=== PATIENT | female | born 1985 | race Caucasian/White ===

== ENCOUNTER 2017-10-27 09:05 | Observation (INO) | payer OTHER ==
[~2017-10-27] VITALS: Ht 160 cm; Wt 83.0 kg
[~2017-10-27 09:05] MED LIST: DSS100 PO; FERR-72 PO; IBUP-2070 PO
[2017-10-27 09:42] VITALS: BP 123/63
[2017-10-27] MEDS ORDERED: PNV11TAB PO (10:52)
[2017-10-27] MEDS ORDERED: ASPI-556 PO (10:52)
[2017-10-27 11:08] LABS: HEMOGLOBIN A1C 5.7 % (4.5-6.2)
== END 2017-10-27 11:00 | disposition home or self-care (01) ==
LOC: 4S 09:05
PROVIDERS: ADMIT Obstetrics & Gynecology; ATTEND Obstetrics & Gynecology
DX: O62.9 Abnormality of forces of labor, unspecified (principal); Z3A.36 36 weeks gestation of pregnancy
CPT/HCPCS: 36415; 59025; 82947; 83036; G0378

== ENCOUNTER 2017-11-21 12:00 | Inpatient (IN) | payer OTHER ==
[~2017-11-21] VITALS: Ht 154.9 cm; Wt 84.8 kg
[~2017-11-21 12:00] MED LIST changes: +ASPI-556 PO; +PNV11TAB PO
[2017-11-21] MEDS ORDERED: RINGERS SOLUTION,LACTATED 1,000 ML IV PRN (12:11)
[2017-11-21] MEDS ORDERED: OXYTOCIN 30 UNITS/LACT RINGERS 500 ML IV ONE (12:11)
[2017-11-21] MEDS ORDERED: CITRIC ACID/SODIUM CITRATE 30 ML SOLUTION UDCUP PO PRN (12:15)
[2017-11-21] MEDS ORDERED: METOCLOPRAMIDE HCL 5 MG/ML 2 ML VIAL IVP PRN (12:15)
[2017-11-21 12:55] LABS: BASOPHILS % (AUTO) 0.3 % (0.0-2.0); EOSINOPHILS % (AUTO) 0.8 % (1.0-6.0); HEMATOCRIT 34.5 % (36-46); HEMOGLOBIN 11.7 g/dL (12.0-16.0); LYMPHOCYTES # (AUTO) 1.5 K/uL (1.0-4.8); LYMPHOCYTES % (AUTO) 18.4 % (22.0-44.0); MEAN CORPUSCULAR HEMOGLOBIN 31.6 pg (26.0-34.0); MEAN CORPUSCULAR VOLUME 93 fL (80-100); MONOCYTES # (AUTO) 0.6 K/uL (0.1-1.0); MONOCYTES % (AUTO) 7.1 % (2.0-9.0); NEUTROPHILS # (AUTO) 6.1 K/uL (1.8-7.7); NEUTROPHILS % (AUTO) 73.4 % (40.0-70.0); PLATELET COUNT (AUTO)-OB 214 K/uL (150-450); RED BLOOD CELL COUNT(AUTO) 3.72 MIL/uL (4.00-5.20); RED CELL DISTRIBUTION WIDTH 14.4 % (11.5-14.5)
[2017-11-21] MEDS: RINGERS SOLUTION,LACTATED 1,000 ML IV SCH ×2 (13:00→21:27)
[2017-11-21] MEDS ORDERED: DINOPROSTONE 10 MG VAGINAL SUPPOSITORY VG ONE (14:15)
[2017-11-21] MEDS ORDERED: AMPICILLIN SODIUM 2 GM/NS 100 ML IV ONE (14:30)
[2017-11-21 16:09] LABS: GLUCOMETER DEV NAME(LOC) 4S 8; GLUCOSE,POINT OF CARE 57 MG/DL (70-110)
[2017-11-21] MEDS ORDERED: AMPICILLIN SODIUM 1 GM/NS 50 ML IV SCH (18:30)
[2017-11-21 18:36] VITALS: BP 116/68
[2017-11-21] MEDS ORDERED: FentaNYL CITRATE-PF 100 MCG/2 ML VIAL ONE (18:54)
[2017-11-21] MEDS: FentaNYL CITRATE-PF 100 MCG/2 ML VIAL IVP PRN ×3 (18:57→20:04)
[2017-11-21] MEDS ORDERED: ROPIVACAINE HCL/PF 0.2% 100 ML ED ONE (19:59)
[2017-11-21] MEDS ORDERED: OXYGEN THERAPY IH SCH (20:00)
[2017-11-21] MEDS ORDERED: OXYTOCIN 20 UNITS/LACT RINGERS 1,000 ML IV SCH (22:44)
[2017-11-21] MEDS ORDERED: MAGNESIUM HYDROXIDE SUSPENSION 30 ML UDCUP PO PRN (22:45)
[2017-11-21] MEDS ORDERED: LANOLIN 7 GM OINTMENT TP PRN (22:45)
[2017-11-21] MEDS ORDERED: MEASLES/MUMPS/RUBELLA VACCINE, LIVE 0.5 ML/VIAL SQ ONE (22:45)
[2017-11-22] MEDS: GLYCERIN/WITCH HAZEL LEAF 40 PADS JAR TP PRN ×2 (00:09→15:23)
[2017-11-22] MEDS: BENZOCAINE 20%/MENTHOL 56 GM SPRAY CANISTER TP PRN ×2 (00:09→15:23)
[2017-11-22] MEDS: IBUPROFEN 600 MG TABLET PO PRN ×3 (01:32→18:48)
[2017-11-22] MEDS: ACETAMINOPHEN/CODEINE 300-30 MG TABLET PO PRN ×4 (04:44→22:40)
[2017-11-22 06:53] LABS: BASOPHILS % (AUTO) 0.2 % (0.0-2.0); EOSINOPHILS % (AUTO) 0.3 % (1.0-6.0); HEMATOCRIT 34.5 % (36-46); HEMOGLOBIN 11.6 g/dL (12.0-16.0); LYMPHOCYTES # (AUTO) 1.4 K/uL (1.0-4.8); LYMPHOCYTES % (AUTO) 11.4 % (22.0-44.0); MEAN CORPUSCULAR HEMOGLOBIN 31.3 pg (26.0-34.0); MEAN CORPUSCULAR HGB CONC 33.5 G/dL (31.0-37.0); MEAN CORPUSCULAR VOLUME 93 fL (80-100); MONOCYTES # (AUTO) 0.8 K/uL (0.1-1.0); MONOCYTES % (AUTO) 6.1 % (2.0-9.0); NEUTROPHILS # (AUTO) 10.3 K/uL (1.8-7.7); PLATELET COUNT (AUTO)-OB 195 K/uL (150-450); RED CELL DISTRIBUTION WIDTH 14.2 % (11.5-14.5)
[2017-11-22] MEDS: SENNA/DOCUSATE SODIUM 187-50 MG TABLET PO PRN ×2 (10:12→21:57)
[2017-11-23] MEDS: IBUPROFEN 600 MG TABLET PO PRN (04:34)
[2017-11-23] MEDS ORDERED: SENNA/DOCUSATE SODIUM 187-50 MG TABLET PO ONE (08:30)
[2017-11-23] MEDS: ACETAMINOPHEN/CODEINE 300-30 MG TABLET PO PRN (09:29)
== END 2017-11-23 11:45 | disposition home or self-care (01) | DRG 775 ==
LOC: OBSVTOIN 12:00 → 4S 12:00
PROVIDERS: ADMIT Obstetrics & Gynecology; ATTEND Obstetrics & Gynecology
PROC: 10E0XZZ Delivery of Products of Conception, External Approach (ICD-10-PCS; principal; 2017-11-21)
PROC: 0KQM0ZZ Repair Perineum Muscle, Open Approach (ICD-10-PCS; 2017-11-21)
PROC: 3E0R3BZ Introduction of Anesthetic Agent into Spinal Canal, Percutaneous Approach (ICD-10-PCS; 2017-11-21)
PROC: 00HU33Z Insertion of Infusion Device into Spinal Canal, Percutaneous Approach (ICD-10-PCS; 2017-11-21)
DX: O77.0 Labor and delivery complicated by meconium in amniotic fluid (principal); Z37.0 Single live birth; O70.1 Second degree perineal laceration during delivery; Z3A.40 40 weeks gestation of pregnancy
CPT/HCPCS: 86850; 86900; 86901; J0290; J2590; J2795; J3010; J7120